=== PATIENT | female | born 2000 | race Caucasian/White ===

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

== ENCOUNTER 2020-01-12 17:14 | Emergency (ER) | payer MEDICAID ==
--- NOTE | 2020-01-12 19:02 | ER Document Report ---
ED Medical Screen (RME) - General Chief Complaint: Breathing Difficulty Stated Complaint: BREATHING PROBLEMS Time Seen by Provider: 01/12/20 18:57 Primary Care Provider: ZAMZAM ARZOLA MD [Primary Care Provider] - Follow up as needed Notes: Patient presents complaining of difficulty breathing for the past 2 weeks that worsened today. Patient describes chest pain that is a pressure. Patient denies any fever, nausea vomiting or diarrhea. Patient denies any cough. Patient denies any significant medical history. I have greeted and performed a rapid initial assessment of this patient. A comprehensive ED assessment and evaluation of the patient, analysis of test results and completion of the medical decision making process will be conducted by additional ED providers. TRAVEL OUTSIDE OF THE [place] IN LAST 30 DAYS: No - Related Data Allergies/Adverse Reactions: No Known Allergies Allergy (Verified 05/31/19 14:13) Past Medical History Renal/ Medical History: Denies: Hx Peritoneal Dialysis Psychiatric Medical History: Reports: Hx Depression - Immunizations Immunizations up to date: Yes Hx Diphtheria, Pertussis, Tetanus Vaccination: Yes Physical Exam - Respiratory Respiratory status: No respiratory distress. No: Labored, Tachypnea Breath sounds: Normal Doctor's Discharge - Discharge Referrals: ZAMZAM ARZOLA MD [Primary Care Provider] - Follow up as needed
--- NOTE | 2020-01-12 20:31 | RADIOLOGY REPORT (SQ) ---
EXAM DESCRIPTION: X-RAY CHEST- One View CLINICAL HISTORY: Difficulty breathing. COMPARISON: May 13, 2019 TECHNIQUE: Single view of the chest. FINDINGS: There are no discrete air space infiltrates, pneumothoraces or pleural effusions. The pulmonary vascularity is normal. The cardiomediastinal silhouette is normal in size. No suspicious lytic or blastic osseous lesions are identified. IMPRESSION: There are no acute lung parenchymal findings.
[2020-01-13 01:12] VITALS: BP 112/88
== END 2020-01-13 01:00 | disposition left against medical advice (07) ==
LOC: ER 17:14
DX: R06.00 Dyspnea, unspecified (principal); R07.89 Other chest pain; Z53.20 Procedure and treatment not carried out because of patient's decision for unspecified reasons
CPT/HCPCS: 71045; 99281